=== PATIENT | female | born 1990 | race American Indian/Alaskan Native ===

== ENCOUNTER 2016-09-12 19:16 | Outpatient (CLI) | payer MEDICAID ==
[2016-09-12 20:10] VITALS: BP 118/66
[2016-09-12] MEDS ORDERED: ZOFRAN IV ONE (20:17)
[2016-09-12 20:32] LABS: Bilirubin,Urine NEG (Negative); Blood,Urine NEG (Negative); Ketones,Urine 20 mg/dL (Negative); Leukocyte Esterase,Urine SM (Negative); Mucus,Urine FEW /HPF; Nitrite,Urine NEG (Negative); Protein,Urine <15 mg/dL mg/dL (Negative); Urobilinogen,Urine < 2.0 mg/dL (<2.0)
[2016-09-12] MEDS ORDERED: LACTATED RINGERS 1,000 ML IV ONE (21:00)
[2016-09-12] MEDS ORDERED: BRETHINE SUB-Q PRN ×2 (21:05→21:25)
[2016-09-12] MEDS ORDERED: BRETHINE ONE (21:05)
[2016-09-12] MEDS ORDERED: LACTATED RINGERS 1,000 ML IV SCH (22:00)
== END 2016-09-12 22:30 | disposition home or self-care (01) ==
LOC: EDSTATUS 19:52 → TRG 19:53
PROVIDERS: ATTEND Obstetrics & Gynecology
DX: O21.8 Other vomiting complicating pregnancy (principal); Z3A.28 28 weeks gestation of pregnancy
CPT/HCPCS: 36415; 81001; 82731; J2405; J3105; J7120; 96360; 96372

== ENCOUNTER 2016-10-15 15:26 | Outpatient (CLI) | payer MEDICAID ==
[2016-10-15] MEDS ORDERED: LACTATED RINGERS 1,000 ML IV ONE (15:59)
[2016-10-15 16:19] LABS: Bacteria,Urine 1+ /HPF (Negative); Bilirubin,Urine NEG (Negative); Blood,Urine NEG (Negative); Ketones,Urine NEG (Negative); Leukocyte Esterase,Urine TR (Negative); Nitrite,Urine NEG (Negative); Protein,Urine <15 mg/dL mg/dL (Negative); Urobilinogen,Urine < 2.0 mg/dL (<2.0)
[2016-10-15] MEDS ORDERED: BRETHINE SUB-Q PRN (18:01)
[2016-10-15] MEDS ORDERED: BRETHINE ONE (18:03)
[2016-10-15] MEDS ORDERED: BRETHINE SUB-Q SCH (18:28)
[2016-10-15] MEDS: BRETHINE SUB-Q PRN ×2 (19:00→19:24)
[2016-10-15 19:05] VITALS: BP 123/74
[2016-10-15] MEDS ORDERED: VISTARIL PO ONE (20:03)
== END 2016-10-15 20:01 | disposition home or self-care (01) ==
LOC: TRG 15:26
PROVIDERS: ATTEND Obstetrics & Gynecology
DX: O26.893 Other specified pregnancy related conditions, third trimester (principal); O47.03 False labor before 37 completed weeks of gestation, third trimester; R10.9 Unspecified abdominal pain; R10.2 Pelvic and perineal pain; Z3A.33 33 weeks gestation of pregnancy
CPT/HCPCS: 59025; 81001; 96360; 96372; 96374; J3105; J7120; Q0177

== ENCOUNTER 2016-11-14 17:51 | Outpatient (CLI) | payer MEDICAID ==
[2016-11-14] MEDS ORDERED: LACTATED RINGERS 1,000 ML ONE (18:43)
[2016-11-14] MEDS ORDERED: LACTATED RINGERS 1,000 ML IV ONE ×2 (18:45→20:00)
[2016-11-14] MEDS ORDERED: ZOFRAN IV ONE (19:00)
[2016-11-14 20:04] VITALS: BP 120/75
== END 2016-11-14 21:00 | disposition home or self-care (01) ==
LOC: TRG 17:51
PROVIDERS: ATTEND Obstetrics & Gynecology
DX: O47.1 False labor at or after 37 completed weeks of gestation (principal); Z3A.37 37 weeks gestation of pregnancy
CPT/HCPCS: 59025; 96360; J7120

== ENCOUNTER 2016-11-29 09:59 | Outpatient (CLI) | payer MEDICAID ==
[2016-11-29 10:30] VITALS: BP 125/72
--- NOTE | 2016-11-29 13:41 | Ultrasound Report ---
BIOPHYSICAL PROFILE: INDICATION: well being. COMPARISON: None similar. TECHNIQUE: Transabdominal ultrasound with Doppler interrogation. 2 - breathing movements 2 - movements 2 - posture and tone 2 - Qualitative amniotic fluid volume 8 - TOTAL SCORE OF POSSIBLE 8 Heart Rate (bpm) 126
== END 2016-11-29 14:07 | disposition home or self-care (01) ==
LOC: TRG 09:59
PROVIDERS: ATTEND Obstetrics & Gynecology
DX: O48.0 Post-term pregnancy (principal); Z3A.40 40 weeks gestation of pregnancy
CPT/HCPCS: 59025; 76819

== ENCOUNTER 2016-11-30 18:00 | Outpatient (CLI) | payer MEDICAID ==
[2016-11-30 18:25] VITALS: BP 126/82
== END 2016-11-30 19:50 | disposition home or self-care (01) ==
LOC: TRG 18:00
PROVIDERS: ATTEND Obstetrics & Gynecology Gynecology
DX: O48.0 Post-term pregnancy (principal); Z3A.40 40 weeks gestation of pregnancy
CPT/HCPCS: 59025

== ENCOUNTER 2016-12-05 08:36 | Inpatient (IN) | payer MEDICAID ==
[2016-12-05] MEDS ORDERED: LACTATED RINGERS 1,000 ML ONE (09:34)
[2016-12-05] MEDS ORDERED: STADOL IV PRN (10:30)
[2016-12-05] MEDS ORDERED: PITOCin/NS 30 UNIT/500ML 30 UNITS/500 ML BAG IV SCH (10:30)
[2016-12-05] MEDS ORDERED: ePHEDrine SULFATE IV PRN (10:30)
[2016-12-05] MEDS ORDERED: SUBLIMAZE IV PRN (10:30)
--- NOTE | 2016-12-05 10:36 | History and Physical Report ---
History of Present Illness Date of examination: 12/05/16 Date of admission: 12/05/16 08:36 Chief complaint: scheduled induction at 40+6 wks History of present illness: 26 y/o at 40+6 wks presents for induction of labor, she is a [facility] patient. course has been unremarkable per patient Past History Past Medical History: no pertinent history Past Surgical History: no surgical history [employer] History: denies: chlamydia, gonorrhea, hepatitis B, hepatitis C, herpes, HIV , syphilis Social history: single, full code. denies: smoking, alcohol abuse, prescription drug abuse, IV drug use - Obstetrical History Expected Date of Delivery: 11/29/16 Actual Gestation: 40 Week(s) 6 Day(s) : 6 Para: 1 Medications and Allergies Allergies Allergy/AdvReac Type Severity Reaction Status Date / Time amoxicillin Allergy Severe Angioedema Verified 12/05/16 09:06 Home Medications Medication Instructions Recorded Confirmed Last Taken Type Ondansetron [Zofran] 4 mg PO Q6HR PRN #12 tablet 06/01/13 11/05/16 11/04/16 16: 00 Rx 1 Ferrous Sulfate [Ferrous Sulfate] 1 tab PO TID 10/15/16 11/05/16 10/13/16 14:00 History 1 Vit W-Ca,Fe,FA(<1 mg) 1 each PO DAILY 11/05/16 11/05/16 Unknown History [ Vitamins] Active Meds: Active Medications Butorphanol Tartrate (Stadol) 2 mg IV Q2H PRN PRN Reason: Pain , Severe (7-10) Ephedrine Sulfate (Ephedrine Sulfate) 10 mg IV Q2M PRN PRN Reason: Hypotension Stop: 12/06/16 13:00 Fentanyl (Sublimaze) 100 mcg IV Q2H PRN PRN Reason: Labor Pain Lactated Ringer's (Lactated Ringers) 1,000 mls @ 125 mls/hr IV DIRECT LUZ Oxytocin/Sodium Chloride (Pitocin/Ns 20 Unit/1000ml Drip) 20 units in 1,000 mls @ 125 mls/hr IV DIRECT LUZ Oxytocin/Sodium Chloride (Pitocin/Ns 30 Unit/500ml) 30 units in 500 mls @ 1 mls /hr IV TITR LUZ; 1 MILLIUNITS/MIN PRN Reason: Protocol Lidocaine (Xylocaine 2%) 20 ml INFILTRATI ONCE ONE Stop: 12/05/16 11:01 Mineral Oil (Mineral Oil) 30 ml PO QHS PRN PRN Reason: Constipation Terbutaline Sulfate (Brethine) 0.25 mg SUB-Q ONCE PRN PRN Reason: Hyperstimulation/Hypertonicity Stop: 12/05/16 11:01 Terbutaline Sulfate (Brethine) 0.25 mg IVP ONCE PRN PRN Reason: Hyperstimulation/Hypertonicity Stop: 12/05/16 11:01 Review of Systems Constitutional: no fever, no chills, no weakness Cardiovascular: no chest pain, no orthopnea, no palpitations, no syncope, no lightheadedness, no shortness of breath, no dyspnea on exertion, no paroxysmal nocturnal dyspnea - Vital Signs Vital signs: Vital Signs Pulse Pulse Ox 94 H 99 12/05/16 09:00 12/05/16 09:00 Temp Pulse Resp BP Pulse Ox 97.1 F L 87 20 122/77 99 12/05/16 09:08 12/05/16 09:01 12/05/16 09:08 12/05/16 09:01 12/05/16 09:00 - Physical Exam Cardiovascular: Regular rate, Normal S1, Normal S2 Lungs: Positive: Clear to auscultation, Normal air movement Abdomen: Positive: normal appearance, soft. Negative: distention, tenderness, guarding, rigidity Genitourinary (Female): Positive: normal external genitalia Uterus: Positive: enlarged (?EFW ~ 4200) Adnexa: both: normal Extremities: Positive: normal - Obstetrical FHR: category 1 Cervical Dilatation: 2.5 (Per RN) Results All other labs normal. Assessment and Plan A: 26 y/o at 40+6 wks for labour induction -Cat 1 tracing P: -Unsure of EFW, we'll obtain a growth scan now -Most likely Pitocin after EFW done -Routine labs -Epidural when necessary -Anticipate normal vaginal delivery - Patient Problems (1) 40 weeks gestation of Current Visit: Yes Status: Acute
[2016-12-05 10:40] LABS: Hematocrit 20.5 % (30.3-42.9); Hemoglobin 6.2 gm/dl (10.1-14.3); Mean Corpuscular HGB Conc 30 % (30-34); Platelet Count 159 K/mm3 (140-440); Red Blood Count 3.46 M/mm3 (3.65-5.03); Red Cell Distribution Width 19.7 % (13.2-15.2); White Blood Count 5.5 K/mm3 (4.5-11.0)
[2016-12-05] MEDS ORDERED: ZOFRAN IV PRN (10:40)
[2016-12-05 10:48] LABS: Mean Corpuscular Hemoglobin 18 pg (28-32); Mean Corpuscular Volume 59 fl (79-97)
[2016-12-05] MEDS ORDERED: LACTATED RINGERS 1,000 ML IV SCH ×2 (11:00)
[2016-12-05] MEDS ORDERED: PITOCin/NS 20 UNIT/1000ML DRIP 20 UNITS/1,000 ML BAG IV SCH (11:00)
[2016-12-05] MEDS ORDERED: BRETHINE SUB-Q PRN (11:00)
[2016-12-05] MEDS ORDERED: MINERAL OIL PO PRN (11:00)
[2016-12-05] MEDS ORDERED: XYLOCAINE 2% INFILTRATI ONE (11:00)
[2016-12-05] MEDS ORDERED: BRETHINE IVP PRN (11:00)
[2016-12-05] MEDS ORDERED: NACL 0.9% 500 ML 500 ML IV NR (13:00)
--- NOTE | 2016-12-05 13:10 | Event Note ---
Date: 12/05/16 Ultrasound complete and reviewed patient's labs from admission. EFW is 4053 g, she is cephalic with an FABI of 24. Her hemoglobin and hematocrit is also low at 6. 2/21. Had a long discussion with the patient and her partner and mother. Explained that she does have a large fetus but that does not preclude vaginal delivery, discussed shoulder dystocia and ACOG recommendations for primary . She is aware that she could request primary at any time but declines. We then discussed her hemoglobin of 6.2, I recommended transfusion and she has accepted. Plan is to obtain anemia studies then transfuse with 2 units packed red blood cells now, continue with Pit induction.
[2016-12-05 13:49] LABS: Iron 18 ug/dL (37-170); Total Iron Binding Capacity 412 mcg/dL (250-450)
--- NOTE | 2016-12-05 14:37 | Ultrasound Report ---
COMPLETE OB ULTRASOUND: Gestation: Fatima Position: Cephalic Amniotic Fluid: FABI = 23.8 cm Placenta: Anterior Placental Grade: 2 Heart Rate: 140 BPM ANATOMY VISUALIZED: Kidneys 4 Chamber Heart Heart 3 Vessel Cord SPINE VISUALIZED: Limited spine due to position The following are not demonstrated due to maternal body habitus or lie: BPD: 9.8 cm = 39 w 6 d HC: 34.6 cm = 40 w 0 d AC: 36.7 cm = 40 w 4 d FL: 7.7 cm = 39 w 4 d HC/AC Ratio: 0.94 Cephalic Index: 81.1 Estimated Weight: 4053 grams Clinical age = 40 w 6 d EDC: 11/29/16 US Gest. Age = 40 w 0 d EDC: 12/05/16
--- NOTE | 2016-12-05 17:24 | Progress Note ---
Assessment and Plan - Patient Problems (1) 40 weeks gestation of Current Visit: Yes Status: Acute Subjective - Subjective Date of service: 12/05/16 Patient reports: new complaints, movement normal, contractions, no loss of fluid, no vaginal bleeding Objective - Vital Signs Vital Signs: Vital Signs - 12hr 12/05/16 12/05/16 12/05/16 09:00 09:01 09:08 Temperature 97.1 F L Pulse Rate 94 H 87 Respiratory 20 Rate Blood Pressure 122/77 O2 Sat by Pulse 99 Oximetry 12/05/16 12/05/16 12/05/16 11:22 11:27 11:32 Temperature Pulse Rate 86 82 78 Respiratory Rate Blood Pressure O2 Sat by Pulse 94 100 99 Oximetry 12/05/16 12/05/16 12/05/16 11:37 11:42 11:47 Temperature Pulse Rate 76 78 72 Respiratory Rate Blood Pressure 130/86 O2 Sat by Pulse 100 100 100 Oximetry 12/05/16 12/05/16 12/05/16 11:52 11:57 12:02 Temperature Pulse Rate 77 89 75 Respiratory Rate Blood Pressure O2 Sat by Pulse 100 100 100 Oximetry 12/05/16 12/05/16 12/05/16 12:07 12:12 12:17 Temperature Pulse Rate 76 73 72 Respiratory Rate Blood Pressure O2 Sat by Pulse 100 100 100 Oximetry 12/05/16 12/05/16 12/05/16 12:22 12:27 12:32 Temperature Pulse Rate 69 72 72 Respiratory Rate Blood Pressure O2 Sat by Pulse 100 100 100 Oximetry 12/05/16 12/05/16 12/05/16 12:37 12:42 12:47 Temperature Pulse Rate 74 71 79 Respiratory Rate Blood Pressure O2 Sat by Pulse 100 100 100 Oximetry 12/05/16 12/05/16 12/05/16 12:52 12:57 13:02 Temperature Pulse Rate 81 81 83 Respiratory Rate Blood Pressure O2 Sat by Pulse 100 100 100 Oximetry 12/05/16 12/05/16 12/05/16 13:07 13:12 13:17 Temperature Pulse Rate 75 78 78 Respiratory Rate Blood Pressure O2 Sat by Pulse 100 100 100 Oximetry 12/05/16 12/05/16 12/05/16 13:22 13:27 13:32 Temperature Pulse Rate 74 78 89 Respiratory Rate Blood Pressure O2 Sat by Pulse 100 100 100 Oximetry 12/05/16 12/05/16 12/05/16 13:37 13:42 13:47 Temperature Pulse Rate 76 87 75 Respiratory Rate Blood Pressure O2 Sat by Pulse 100 100 100 Oximetry 12/05/16 12/05/16 12/05/16 13:52 13:57 14:12 Temperature 98.9 F Pulse Rate 78 75 80 Respiratory 18 Rate Blood Pressure 129/92 O2 Sat by Pulse 100 99 Oximetry 12/05/16 12/05/16 12/05/16 14:20 14:25 14:28 Temperature Pulse Rate 79 80 77 Respiratory Rate Blood Pressure 130/84 129/92 123/88 O2 Sat by Pulse 100 100 Oximetry 12/05/16 12/05/16 12/05/16 14:29 14:30 14:31 Temperature 98.9 F Pulse Rate 78 81 78 Respiratory 18 Rate Blood Pressure 123/84 127/84 O2 Sat by Pulse 100 Oximetry 12/05/16 12/05/16 12/05/16 14:34 14:35 14:36 Temperature 98.9 F Pulse Rate 87 86 81 Respiratory 18 Rate Blood Pressure 127/84 123/85 O2 Sat by Pulse 100 100 Oximetry 12/05/16 12/05/16 12/05/16 14:40 14:41 14:44 Temperature 98.8 F Pulse Rate 83 79 81 Respiratory 18 Rate Blood Pressure 131/86 131/86 O2 Sat by Pulse 100 100 Oximetry 12/05/16 12/05/16 12/05/16 14:45 14:50 14:55 Temperature Pulse Rate 89 81 93 H Respiratory Rate Blood Pressure O2 Sat by Pulse 100 100 100 Oximetry 12/05/16 12/05/16 12/05/16 14:59 15:00 15:01 Temperature 98.1 F Pulse Rate 82 78 84 Respiratory 18 Rate Blood Pressure 130/84 134/87 O2 Sat by Pulse 100 100 Oximetry 12/05/16 12/05/16 12/05/16 15:05 15:10 15:13 Temperature Pulse Rate 87 82 81 Respiratory Rate Blood Pressure 139/88 O2 Sat by Pulse 100 100 Oximetry 12/05/16 12/05/16 12/05/16 15:15 15:20 15:25 Temperature Pulse Rate 84 85 78 Respiratory Rate Blood Pressure O2 Sat by Pulse 100 100 100 Oximetry 12/05/16 12/05/16 12/05/16 15:26 15:30 15:35 Temperature 98.1 F Pulse Rate 90 89 85 Respiratory 18 Rate Blood Pressure 139/88 O2 Sat by Pulse 100 100 100 Oximetry 12/05/16 12/05/16 12/05/16 15:40 15:51 15:56 Temperature Pulse Rate 92 H 78 85 Respiratory Rate Blood Pressure 134/87 O2 Sat by Pulse 99 100 100 Oximetry 12/05/16 12/05/16 12/05/16 16:01 16:06 16:11 Temperature Pulse Rate 84 87 89 Respiratory Rate Blood Pressure O2 Sat by Pulse 100 100 100 Oximetry 12/05/16 12/05/16 12/05/16 16:16 16:20 16:21 Temperature Pulse Rate 89 80 83 Respiratory Rate Blood Pressure 136/87 O2 Sat by Pulse 100 100 Oximetry 12/05/16 12/05/16 12/05/16 16:26 16:28 16:30 Temperature 98.3 F Pulse Rate 87 89 83 Respiratory 16 Rate Blood Pressure 124/73 124/73 O2 Sat by Pulse 100 100 Oximetry 12/05/16 12/05/16 12/05/16 16:31 16:35 16:36 Temperature 98.3 F Pulse Rate 86 86 87 Respiratory 16 Rate Blood Pressure 141/87 O2 Sat by Pulse 100 100 100 Oximetry 12/05/16 12/05/16 12/05/16 16:37 16:38 16:40 Temperature 98.3 F 98.3 F Pulse Rate 85 88 Respiratory 16 16 Rate Blood Pressure 135/83 135/83 O2 Sat by Pulse 100 Oximetry 12/05/16 12/05/16 12/05/16 16:41 16:45 16:46 Temperature 98.3 F Pulse Rate 82 87 78 Respiratory 18 Rate Blood Pressure 126/80 O2 Sat by Pulse 100 100 100 Oximetry 12/05/16 12/05/16 12/05/16 16:50 16:51 16:56 Temperature Pulse Rate 93 H 90 82 Respiratory Rate Blood Pressure 126/83 O2 Sat by Pulse 99 100 Oximetry 12/05/16 12/05/16 12/05/16 16:58 17:01 17:06 Temperature Pulse Rate 75 79 81 Respiratory Rate Blood Pressure 132/80 O2 Sat by Pulse 100 99 Oximetry 12/05/16 12/05/16 17:11 17:16 Temperature Pulse Rate 85 77 Respiratory Rate Blood Pressure O2 Sat by Pulse 99 100 Oximetry - Exam FHR: category 1 Cervical Dilatation: 4.5 - Labs Labs: Abnormal Labs 12/05/16 12/05/16 12/05/16 09:00 09:00 09:00 RBC 3.46 L Hgb 6.2 L Hct 20.5 L MCV 59 L MCH 18 L RDW 19.7 H Iron 18 L Ferritin Crossmatch See Detail 12/05/16 13:39 RBC Hgb Hct MCV MCH RDW Iron Ferritin 7.7 L Crossmatch Laboratory Results - last 24 hr 12/05/16 12/05/16 12/05/16 09:00 09:00 09:00 WBC 5.5 RBC 3.46 L Hgb 6.2 L Hct 20.5 L MCV 59 L MCH 18 L MCHC 30 RDW 19.7 H Plt Count 159 Iron 18 L TIBC 412 Ferritin Vitamin B12 Blood Type A POSITIVE Antibody Screen Negative Crossmatch See Detail 12/05/16 12/05/16 13:39 13:39 WBC RBC Hgb Hct MCV MCH MCHC RDW Plt Count Iron TIBC Ferritin 7.7 L Vitamin B12 237.2 Blood Type Antibody Screen Crossmatch
--- NOTE | 2016-12-05 19:19 | Progress Note ---
Assessment and Plan A: 26 y/o at 40+6 wks for labour induction -Cat 1 tracing P: AROMed IUPC placed Continue present care - Patient Problems (1) 40 weeks gestation of Current Visit: Yes Status: Acute Subjective - Subjective Date of service: 12/05/16 Interval history: Patient with tachysystole, it turned off. Still 5 cm, AROM with clear fluid and IUPC placed Patient reports: new complaints, loss of fluid (AROMed), movement normal, contractions, no vaginal bleeding Objective - Vital Signs Vital Signs: Vital Signs - 12hr 12/05/16 12/05/16 12/05/16 09:00 09:01 09:08 Temperature 97.1 F L Pulse Rate 94 H 87 Respiratory 20 Rate Blood Pressure 122/77 O2 Sat by Pulse 99 Oximetry 12/05/16 12/05/16 12/05/16 11:22 11:27 11:32 Temperature Pulse Rate 86 82 78 Respiratory Rate Blood Pressure O2 Sat by Pulse 94 100 99 Oximetry 12/05/16 12/05/16 12/05/16 11:37 11:42 11:47 Temperature Pulse Rate 76 78 72 Respiratory Rate Blood Pressure 130/86 O2 Sat by Pulse 100 100 100 Oximetry 12/05/16 12/05/16 12/05/16 11:52 11:57 12:02 Temperature Pulse Rate 77 89 75 Respiratory Rate Blood Pressure O2 Sat by Pulse 100 100 100 Oximetry 12/05/16 12/05/16 12/05/16 12:07 12:12 12:17 Temperature Pulse Rate 76 73 72 Respiratory Rate Blood Pressure O2 Sat by Pulse 100 100 100 Oximetry 12/05/16 12/05/16 12/05/16 12:22 12:27 12:32 Temperature Pulse Rate 69 72 72 Respiratory Rate Blood Pressure O2 Sat by Pulse 100 100 100 Oximetry 12/05/16 12/05/16 12/05/16 12:37 12:42 12:47 Temperature Pulse Rate 74 71 79 Respiratory Rate Blood Pressure O2 Sat by Pulse 100 100 100 Oximetry 12/05/16 12/05/16 12/05/16 12:52 12:57 13:02 Temperature Pulse Rate 81 81 83 Respiratory Rate Blood Pressure O2 Sat by Pulse 100 100 100 Oximetry 12/05/16 12/05/16 12/05/16 13:07 13:12 13:17 Temperature Pulse Rate 75 78 78 Respiratory Rate Blood Pressure O2 Sat by Pulse 100 100 100 Oximetry 12/05/16 12/05/16 12/05/16 13:22 13:27 13:32 Temperature Pulse Rate 74 78 89 Respiratory Rate Blood Pressure O2 Sat by Pulse 100 100 100 Oximetry 12/05/16 12/05/16 12/05/16 13:37 13:42 13:47 Temperature Pulse Rate 76 87 75 Respiratory Rate Blood Pressure O2 Sat by Pulse 100 100 100 Oximetry 12/05/16 12/05/16 12/05/16 13:52 13:57 14:12 Temperature 98.9 F Pulse Rate 78 75 80 Respiratory 18 Rate Blood Pressure 129/92 O2 Sat by Pulse 100 99 Oximetry 12/05/16 12/05/16 12/05/16 14:20 14:25 14:28 Temperature Pulse Rate 79 80 77 Respiratory Rate Blood Pressure 130/84 129/92 123/88 O2 Sat by Pulse 100 100 Oximetry 12/05/16 12/05/16 12/05/16 14:29 14:30 14:31 Temperature 98.9 F Pulse Rate 78 81 78 Respiratory 18 Rate Blood Pressure 123/84 127/84 O2 Sat by Pulse 100 Oximetry 12/05/16 12/05/16 12/05/16 14:34 14:35 14:36 Temperature 98.9 F Pulse Rate 87 86 81 Respiratory 18 Rate Blood Pressure 127/84 123/85 O2 Sat by Pulse 100 100 Oximetry 12/05/16 12/05/16 12/05/16 14:40 14:41 14:44 Temperature 98.8 F Pulse Rate 83 79 81 Respiratory 18 Rate Blood Pressure 131/86 131/86 O2 Sat by Pulse 100 100 Oximetry 12/05/16 12/05/16 12/05/16 14:45 14:50 14:55 Temperature Pulse Rate 89 81 93 H Respiratory Rate Blood Pressure O2 Sat by Pulse 100 100 100 Oximetry 12/05/16 12/05/16 12/05/16 14:59 15:00 15:01 Temperature 98.1 F Pulse Rate 82 78 84 Respiratory 18 Rate Blood Pressure 130/84 134/87 O2 Sat by Pulse 100 100 Oximetry 12/05/16 12/05/16 12/05/16 15:05 15:10 15:13 Temperature Pulse Rate 87 82 81 Respiratory Rate Blood Pressure 139/88 O2 Sat by Pulse 100 100 Oximetry 12/05/16 12/05/16 12/05/16 15:15 15:20 15:25 Temperature Pulse Rate 84 85 78 Respiratory Rate Blood Pressure O2 Sat by Pulse 100 100 100 Oximetry 12/05/16 12/05/16 12/05/16 15:26 15:30 15:35 Temperature 98.1 F Pulse Rate 90 89 85 Respiratory 18 Rate Blood Pressure 139/88 O2 Sat by Pulse 100 100 100 Oximetry 12/05/16 12/05/16 12/05/16 15:40 15:51 15:56 Temperature Pulse Rate 92 H 78 85 Respiratory Rate Blood Pressure 134/87 O2 Sat by Pulse 99 100 100 Oximetry 12/05/16 12/05/16 12/05/16 16:01 16:06 16:11 Temperature Pulse Rate 84 87 89 Respiratory Rate Blood Pressure O2 Sat by Pulse 100 100 100 Oximetry 12/05/16 12/05/16 12/05/16 16:16 16:20 16:21 Temperature Pulse Rate 89 80 83 Respiratory Rate Blood Pressure 136/87 O2 Sat by Pulse 100 100 Oximetry 12/05/16 12/05/16 12/05/16 16:26 16:28 16:30 Temperature 98.3 F Pulse Rate 87 89 83 Respiratory 16 Rate Blood Pressure 124/73 124/73 O2 Sat by Pulse 100 100 Oximetry 12/05/16 12/05/16 12/05/16 16:31 16:35 16:36 Temperature 98.3 F Pulse Rate 86 86 87 Respiratory 16 Rate Blood Pressure 141/87 O2 Sat by Pulse 100 100 100 Oximetry 12/05/16 12/05/16 12/05/16 16:37 16:38 16:40 Temperature 98.3 F 98.3 F Pulse Rate 85 88 Respiratory 16 16 Rate Blood Pressure 135/83 135/83 O2 Sat by Pulse 100 Oximetry 12/05/16 12/05/16 12/05/16 16:41 16:45 16:46 Temperature 98.3 F Pulse Rate 82 87 78 Respiratory 18 Rate Blood Pressure 126/80 O2 Sat by Pulse 100 100 100 Oximetry 12/05/16 12/05/16 12/05/16 16:50 16:51 16:56 Temperature Pulse Rate 93 H 90 82 Respiratory Rate Blood Pressure 126/83 O2 Sat by Pulse 99 100 Oximetry 12/05/16 12/05/1617 16:58 17:00 17:01 Temperature 98.4 F Pulse Rate 75 83 79 Respiratory 20 Rate Blood Pressure 132/80 132/80 O2 Sat by Pulse 100 100 Oximetry 12/05/16 12/05/16 12/05/16 17:06 17:11 17:16 Temperature Pulse Rate 81 85 77 Respiratory Rate Blood Pressure O2 Sat by Pulse 99 99 100 Oximetry 12/05/16 12/05/16 12/05/16 17:21 17:26 17:30 Temperature Pulse Rate 86 84 75 Respiratory Rate Blood Pressure 135/87 O2 Sat by Pulse 100 99 Oximetry 12/05/16 12/05/16 12/05/16 17:31 17:36 17:41 Temperature Pulse Rate 77 77 89 Respiratory Rate Blood Pressure O2 Sat by Pulse 100 100 100 Oximetry 12/05/16 12/05/16 12/05/16 17:46 17:51 17:56 Temperature Pulse Rate 79 78 78 Respiratory Rate Blood Pressure O2 Sat by Pulse 100 100 100 Oximetry 12/05/16 12/05/16 12/05/16 17:58 18:01 18:06 Temperature Pulse Rate 77 71 82 Respiratory Rate Blood Pressure 138/89 O2 Sat by Pulse 100 100 Oximetry 12/05/16 12/05/16 12/05/16 18:11 18:16 18:21 Temperature Pulse Rate 73 72 74 Respiratory Rate Blood Pressure O2 Sat by Pulse 100 100 100 Oximetry 12/05/16 12/05/16 12/05/16 18:26 18:30 18:31 Temperature Pulse Rate 72 73 72 Respiratory Rate Blood Pressure 130/86 O2 Sat by Pulse 100 99 Oximetry 12/05/16 12/05/16 12/05/16 18:36 18:41 18:46 Temperature Pulse Rate 71 71 72 Respiratory Rate Blood Pressure O2 Sat by Pulse 100 100 100 Oximetry 12/05/16 12/05/16 12/05/16 18:51 18:56 18:58 Temperature Pulse Rate 75 75 80 Respiratory Rate Blood Pressure 124/87 O2 Sat by Pulse 100 100 Oximetry 12/05/16 12/05/16 12/05/16 19:01 19:06 19:11 Temperature Pulse Rate 72 76 76 Respiratory Rate Blood Pressure O2 Sat by Pulse 100 100 100 Oximetry - Exam Uterus: Absent: tenderness FHR: category 1 Cervical Dilatation: 5 - Labs Labs: Abnormal Labs 04/05/17 04/05/17 04/05/17 09:00 09:00 09:00 RBC 3.46 L Hgb 6.2 L Hct 20.5 L MCV 59 L MCH 18 L RDW 19.7 H Iron 18 L Ferritin Crossmatch See Detail 12/05/16 13:39 RBC Hgb Hct MCV MCH RDW Iron Ferritin 7.7 L Crossmatch Laboratory Results - last 24 hr 12/05/16 12/05/16 12/05/16 09:00 09:00 09:00 WBC 5.5 RBC 3.46 L Hgb 6.2 L Hct 20.5 L MCV 59 L MCH 18 L MCHC 30 RDW 19.7 H Plt Count 159 Iron 18 L TIBC 412 Ferritin Vitamin B12 Blood Type A POSITIVE Antibody Screen Negative Crossmatch See Detail 12/05/16 12/05/16 13:39 13:39 WBC RBC Hgb Hct MCV MCH MCHC RDW Plt Count Iron TIBC Ferritin 7.7 L Vitamin B12 237.2 Blood Type Antibody Screen Crossmatch
[2016-12-05] MEDS ORDERED: REGLAN IV ONE (23:00)
[2016-12-05] MEDS ORDERED: BICITRA PO ONE ×2 (23:00→23:25)
[2016-12-05] MEDS ORDERED: ANCEF/STERILE WATER 2 GM/20 ML IV NR (23:00)
[2016-12-05] MEDS ORDERED: PEPCID IV ONE ×3 (23:00→23:29)
[2016-12-05] MEDS ORDERED: NARCAN 2 MG/2 ML IV PRN (23:01)
--- NOTE | 2016-12-05 23:02 | Anesthesia Consultation ---
Anesthesia Consult and Med Hx Date of service: 12/05/16 - Airway Anesthetic Teeth Evaluation: Good ROM Head & Neck: Adequate Mental/Hyoid Distance: Adequate Mallampati Class: Class II Intubation Access Assessment: Probably Good - Pulmonary Exam CTA: Yes - Cardiac Exam Cardiac Exam: RRR - Pre-Operative Health Status ASA Pre-Surgery Classification: ASA2 Proposed Anesthetic Plan: Epidural - Pulmonary Hx Asthma: No COPD: No Hx Pneumonia: No - Cardiovascular System Hx Hypertension: No - Central Nervous System Hx Seizures: No Hx Psychiatric Problems: Yes (hx of anxiety) - Endocrine Hx Renal Disease: No Hx End Stage Renal Disease: No Hx Hypothyroidism: No Hx Hyperthyroidism: No - Hematic Hx Anemia: Yes Hx Sickle Cell Disease: Yes (+ sickle cell trait) - Other Systems Hx Alcohol Use: No
[2016-12-05] MEDS ORDERED: REGLAN IV NR (23:25)
[2016-12-05] MEDS ORDERED: BICITRA ONE (23:29)
[2016-12-05] MEDS ORDERED: REGLAN ONE (23:29)
[2016-12-05] MEDS ORDERED: ANCEF/STERILE WATER 2 GM/20 ML 2 GM/20 ML SYRINGE IV ONE (23:29)
--- NOTE | 2016-12-05 23:37 | Anesthesia Day of Surgery ---
Anesthesia Day of Surgery - Day of Surgery Patient Examined: Yes Patient H&P Reviewed: Yes Patient is NPO: Yes
[2016-12-05] MEDS ORDERED: fentaNYL-BUPIV 2 MCG/ML-0.125% 200 MCG/100 ML BAG EPIDURAL SCH (23:45)
[2016-12-05] MEDS ORDERED: XYLOCAINE MPF 2% ONE (23:56)
[2016-12-05] MEDS ORDERED: MORPHINE ONE ×2 (23:56)
[2016-12-06] MEDS ORDERED: NACL 0.9% IR ONE
[2016-12-06] MEDS ORDERED: WATER FOR IRRIG STERILE IR ONE
[2016-12-06] MEDS ORDERED: SUBLIMAZE ONE (00:03)
[2016-12-06] MEDS ORDERED: VERSED ONE (00:07)
[2016-12-06] MEDS ORDERED: ZOFRAN ONE (00:09)
[2016-12-06] MEDS ORDERED: TORADOL ONE (00:48)
[2016-12-06] MEDS ORDERED: NARCAN 0.4 MG/1 ML IV PRN (00:56)
[2016-12-06] MEDS ORDERED: MILK OF MAGNESIA PO PRN (00:56)
[2016-12-06] MEDS ORDERED: SENOKOT PO PRN (00:56)
[2016-12-06] MEDS ORDERED: TORADOL IV PRN (00:56)
[2016-12-06] MEDS ORDERED: MYLICON PO PRN (00:56)
[2016-12-06] MEDS ORDERED: ANUCORT-HC PR PRN (00:56)
[2016-12-06] MEDS ORDERED: TUCKS PAD TP PRN (00:56)
[2016-12-06] MEDS ORDERED: TYLENOL PO PRN (00:56)
[2016-12-06] MEDS ORDERED: LANSINOH TP PRN (00:56)
[2016-12-06] MEDS ORDERED: SODIUM CHLORIDE FLUSH SYRINGE 10 ML IV PRN (01:00)
[2016-12-06] MEDS ORDERED: PITOCin/NS 20 UNIT/1000ML DRIP 20 UNITS/1,000 ML BAG IV SCH (01:00)
--- NOTE | 2016-12-06 01:02 | Operative Report ---
Operative Report Operative Report: DATE: 12/06/2016 PREOPERATIVE DIAGNOSIS:26-year-old 001 at 40+6 weeks, category 2 tracing, macrosomia, arrest of descent and dilation, anemia POSTOP DIAGNOSIS: As above NAME OF PROCEDURE: Primary low transverse section SURGEON: JEANETTE MONSON MD GARMENT PRESSER: [] ANESTHESIA: Epidural EBL: 800 mL PATHOLOGY SPECIMEN: None URINE OUTPUT: 250 mL FINDINGS: Female infant in cephalic presentation, OP position, time of is 00:09 AM, infant weight was 9 lbs. 1 oz. or 4100 g, Apgars 8 and 9, normal uterus tubes and ovaries bilaterally DESCRIPTION OF PROCEDURE: After informed consent, patient was taken to the operating room where she was prepped and draped in a sterile fashion. Pfannestial incision was performed 2 cm above the pubic symphysis. This was then carried down to the underlying rectus fascia which was scored in the midline. The fascial incision was extended laterally with the use of Schaefer scissors, anterior leaf was then grasped with Willards's elevated dissected sharply and bluntly off the underlying rectus. In a similar fashion the inferior leaf was grasped elevated dissected sharply and bluntly off the underlying rectus. The rectus was in the midline and the peritoneal cavity was entered without difficulty. After good visualization of the bladder the peritoneal layer was extended up and down; bladder blade was placed in the patient's pelvic cavity, bladder flap was created without difficulty. A hysterotomy incision was then performed with clear amniotic fluid noted. Infant in cephalic presentation was delivered without difficulty in the usual manner; cord was clamped cut and was handed over to waiting NICU staff. The placenta was then delivered intact, the uterus was then exteriorized cleared of all clots and debris. Her hysterotomy incision was then closed in a running locked fashion with 0 Vicryl on a CTX; using the same suture were able to imbricate the initial layer. The uterus was then returned to the patient's pelvic cavity; the peritoneal edges were grasped with hemostats and Lisandra's; irrigation was used to clear the gutters of all clots and debris. Tisseel hemostatic agent was applied copiously over the hysterotomy incision. The bladder flap was then closed in a running fashion with 3-0 Vicryl. The peritoneal layer was closed in a running fashion with 0 Vicryl; the rectus was reapproximated with a single [id number] stitch. The fascia was then closed in a running fashion with 0 Vicryl; the subcutaneous layer was reapproximated with a single [id number] stitch. The skin was then closed in a subcuticular manner with 4-0 Monocryl. She tolerated the procedure well lap and instrument counts were correct 2, she did receive 2 grams of Ancef prior to the procedure. She is transferred to PACU in stable condition.
--- NOTE | 2016-12-06 01:13 | Post Anesthesia Evaluation ---
- Post Anesthesia Evaluation Patient Participated: Yes Airway Patent: Yes Stable Respiratory Function: Yes Nausea/Vomiting: No Temp > 96.8F: Yes Pain Manageable: Yes Adequeate Hydration: Yes Anesthesia Complications: No Block Receding Appropriately: Yes Patient on Ventilator: No
[2016-12-06] MEDS ORDERED: DILAUDID IV PRN (01:15)
[2016-12-06] MEDS ORDERED: ZOFRAN IV PRN (03:30)
[2016-12-06] MEDS: D5LR 1,000 ML IV SCH ×2 (03:42→11:36)
[2016-12-06] MEDS: BENADRYL IV PRN ×2 (03:55→13:59)
[2016-12-06 13:53] LABS: Hematocrit 23.9 % (30.3-42.9); Hemoglobin 7.5 gm/dl (10.1-14.3)
[2016-12-06] MEDS: BENADRYL PO PRN ×2 (17:38→23:43)
[2016-12-06] MEDS: MOTRIN PO PRN (17:50)
[2016-12-06] MEDS: PERCOCET 5/325 PO PRN (17:50)
[2016-12-07] MEDS: MOTRIN PO PRN ×3 (03:51→18:28)
--- NOTE | 2016-12-07 08:53 | Progress Note ---
Assessment and Plan POD # 1 s/p Primary LTCS -Doing well P: -Continue routine post op care -Anticipate discharge in 24-48 hours - Patient Problems (1) S/P primary low transverse Current Visit: Yes Status: Acute (2) Anemia affecting in third trimester Current Visit: Yes Status: Acute (3) 40 weeks gestation of Current Visit: Yes Status: Acute Subjective - Subjective Date of service: 12/07/16 Principal diagnosis: POD # 1 Interval history: Patient seen and examined, stable. No chest pain or shortness of breath, no fever or chills, ambulating without difficulty, adequate bowel bladder function. Patient reports: appetite normal, voiding normally, pain well controlled, flatus , ambulating normally, no dizzy ambulation, no nauseated : doing well Objective - Vital Signs Latest vital signs: Vital Signs Temp Pulse Pulse Resp BP BP 12/07/16 00:20 98.1 F 72 18 123/62 12/06/16 20:10 99.3 F 72 18 132/85 12/06/16 16:30 97.6 F 76 20 114/84 12/06/16 12:45 97.8 F 84 20 124/84 Intake and Output 12/06/16 12/07/16 12/07/16 22:59 06:59 14:59 Intake Total 660 120 Balance 660 120 Intake: Oral 480 Intake, Free Water 180 120 Other: Total, Intake Amount 360 # Voids Void 1 1 - Exam Abdomen: Present: normal appearance, soft, tenderness (appropriate azalea- incisional tenderness). Absent: distention, guarding, rigidity Uterus: Present: fundal height below umbilicus. Absent: tenderness Extremities: Present: normal Incision: Present: dry, intact - Labs Labs: Abnormal lab results 12/06/16 Range/Units 13:37 Hgb 7.5 L (10.1-14.3) gm/dl Hct 23.9 L (30.3-42.9) %
[2016-12-07] MEDS: FEOSOL PO SCH (10:28)
[2016-12-07] MEDS: PERCOCET 5/325 PO PRN ×2 (10:28→18:28)
[2016-12-07] MEDS: PRENATAL VITAMIN PO SCH (10:28)
[2016-12-07] MEDS: POLYSPORIN TP SCH ×2 (10:42→22:05)
[2016-12-08] MEDS: PERCOCET 5/325 PO PRN (03:03)
--- NOTE | 2016-12-08 07:24 | Progress Note ---
Assessment and Plan POD # 2 s/p Primary LTCS -Doing well -Desires discharge home today P: -Discharge home -Up in clinic in 2 weeks - Patient Problems (1) S/P primary low transverse Current Visit: Yes Status: Acute (2) Anemia affecting in third trimester Current Visit: Yes Status: Acute (3) 40 weeks gestation of Current Visit: Yes Status: Acute Subjective - Subjective Date of service: 12/08/16 Principal diagnosis: POD # 2 Interval history: Patient seen and examined, stable. No chest pain or shortness of breath, no fever or chills, ambulating without difficulty, adequate bowel bladder function. Patient reports: appetite normal, voiding normally, pain well controlled, flatus , ambulating normally, no dizzy ambulation, no nauseated [place]: doing well Objective - Vital Signs Latest vital signs: Vital Signs Temp Pulse Resp BP 12/08/16 03:03 18 12/08/16 00:25 98.6 F 77 22 130/71 12/07/16 15:43 98.6 F 87 18 130/69 12/07/16 08:08 98.9 F 70 18 135/70 Intake and Output 12/07/16 12/08/16 12/08/16 22:59 06:59 14:59 Intake Total 480 1400 Balance 480 1400 Intake: Oral 480 550 Intake, Free Water 850 Other: Total, Intake Amount 480 250 # Voids Void 1 - Exam Abdomen: Present: normal appearance, soft. Absent: distention, tenderness, guarding, rigidity Uterus: Present: fundal height at umbilicus. Absent: tenderness Extremities: Present: normal
--- NOTE | 2016-12-08 07:26 | Discharge Summary ---
Providers - Providers Date of Admission: 12/05/16 08:36 Date of discharge: 12/08/16 Attending physician: JEANETTE MONSON Primary care physician: JEANETTE MONSON Hospitalization Reason for admission: active labor, IUP at term Delivery: Procedure: primary low transverse Incision: dry, intact Other procedures: none complications: transfusion Discharge diagnosis: IUP at term delivered, other (Anemia) baby: female Hospital course: [place]-Operative course uncomplicated. She was transfused 2 units packed red blood cells due to her anemia Condition at discharge: Good Disposition: DISCHARGED TO HOME OR SELFCARE - Discharge Diagnoses (1) S/P primary low transverse Status: Acute (2) Anemia affecting in third trimester Status: Acute (3) 40 weeks gestation of Status: Acute Plan - Discharge Medications Prescriptions: Ibuprofen [Motrin 600 MG tab] 600 mg PO Q8H PRN #30 tablet PRN Reason: Pain Multivitamin with Iron [Multivitamins with Iron] 1 each PO DAILY #30 tablet oxyCODONE /ACETAMINOPHEN [Percocet 5/325] 1 tab PO Q6HR PRN #30 tablet PRN Reason: Pain - Provider Discharge Summary Activity: no sex for 6 weeks, no heavy lifting 4 weeks, no strenuous exercise Diet: routine Additional instructions: [] Smoking cessation referral if applicable(refer to patient education folder for contact #) [] Refer to [facility] Booklet Call your doctor immediately for: * Fever > 100.5 * Heavy vaginal bleeding ( >1 pad per hour) * Severe persistent headache * Shortness of breath * Reddened, hot, painful area to leg or breast * Drainage or odor from incision. * Keep incision clean and dry at all times and follow doctor's instructions regarding bathing/showering - Follow up plan Follow up: JEANETTE MONSON MD [Primary Care Provider] - 14 Days
[2016-12-08 09:41] VITALS: BP 137/80
[2016-12-08] MEDS: FEOSOL PO SCH (11:23)
[2016-12-08] MEDS: PRENATAL VITAMIN PO SCH (11:23)
== END 2016-12-08 12:00 | disposition home or self-care (01) | DRG 766 ==
LOC: LD 08:36 → OB 12-06 02:37
PROVIDERS: ADMIT Obstetrics & Gynecology Gynecology; ATTEND Obstetrics & Gynecology Gynecology
PROC: 30233N1 Transfusion of Nonautologous Red Blood Cells into Peripheral Vein, Percutaneous Approach (ICD-10-PCS; 2016-12-05)
PROC: 10D00Z1 Extraction of Products of Conception, Low, Open Approach (ICD-10-PCS; principal; 2016-12-06)
DX: O76 Abnormality in fetal heart rate and rhythm complicating labor and delivery (principal); O99.02 Anemia complicating childbirth; O36.63X0 Maternal care for excessive fetal growth, third trimester, not applicable or unspecified; O32.4XX0 Maternal care for high head at term, not applicable or unspecified; O66.0 Obstructed labor due to shoulder dystocia; O99.344 Other mental disorders complicating childbirth; F41.9 Anxiety disorder, unspecified; Z37.0 Single live birth; Z3A.40 40 weeks gestation of pregnancy; Z88.1 Allergy status to other antibiotic agents
CPT/HCPCS: 36415; 76805; 82607; 82728; 82747; 83550; 85014; 85018; 85027; 86850; 86900; 86901; 86920; 99211; C9250; G0463; J0595; J0690; J1200; J1885; J2250; J2270; J2405; J2590; J2765; J3010; J7040; J7120; J7121; P9016

== ENCOUNTER 2018-01-02 06:39 | Inpatient (IN) | payer MEDICAID ==
[2018-01-02] MEDS: LACTATED RINGERS 1,000 ML IV SCH ×2 (07:30→08:00)
[2018-01-02] MEDS ORDERED: LACTATED RINGERS 2,000 ML ONE (07:48)
[2018-01-02] MEDS ORDERED: PITOCin/NS 20 UNIT/1000ML DRIP 20 UNITS/1,000 ML BAG IV SCH ×2 (08:00→20:00)
[2018-01-02] MEDS ORDERED: REGLAN IV NR (08:00)
[2018-01-02] MEDS ORDERED: PEPCID IV NR (08:00)
[2018-01-02] MEDS ORDERED: BICITRA PO NR (08:00)
[2018-01-02 08:01] LABS: Hematocrit 31.1 % (30.3-42.9); Hemoglobin 10.1 gm/dl (10.1-14.3); Mean Corpuscular HGB Conc 32 % (30-34); Platelet Count 236 K/mm3 (140-440); Red Blood Count 4.66 M/mm3 (3.65-5.03)
[2018-01-02 08:13] LABS: Mean Corpuscular Hemoglobin 22 pg (28-32); Mean Corpuscular Volume 67 fl (79-97); Red Cell Distribution Width 28.6 % (13.2-15.2)
--- NOTE | 2018-01-02 08:17 | Anesthesia Day of Surgery ---
Anesthesia Day of Surgery - Day of Surgery Patient Examined: Yes Patient H&P Reviewed: Yes Patient is NPO: Yes
--- NOTE | 2018-01-02 08:17 | Anesthesia Consultation ---
Anesthesia Consult and Med Hx Date of service: 01/02/18 - Airway Anesthetic Teeth Evaluation: Good ROM Head & Neck: Adequate Mental/Hyoid Distance: Adequate Mallampati Class: Class II Intubation Access Assessment: Probably Good - Pre-Operative Health Status ASA Pre-Surgery Classification: ASA2 Proposed Anesthetic Plan: Epidural, Spinal - Pulmonary Hx Asthma: No COPD: No Hx Pneumonia: No - Cardiovascular System Hx Hypertension: No - Central Nervous System Hx Seizures: No Hx Psychiatric Problems: Yes (hx of anxiety) - Endocrine Hx Renal Disease: No Hx End Stage Renal Disease: No Hx Hypothyroidism: No Hx Hyperthyroidism: No - Hematic Hx Anemia: Yes Hx Sickle Cell Disease: Yes (+ sickle cell trait) - Other Systems Hx Alcohol Use: No
[2018-01-02] MEDS ORDERED: DILAUDID IV PRN (08:30)
--- NOTE | 2018-01-02 08:42 | History and Physical Report ---
History of Present Illness Date of examination: 01/02/18 Date of admission: 01/02/18 06:39 Chief complaint: Repeat C Section History of present illness: Pt is a 27yo BF EDC 01/10/18; EGA 39 6/7 weeks presents to L&D complaining of RUC's. She was scheduled for a Repeat C Section with BTL. She received care at [facility] since 14 weeks and course has been unremarkable. records are available and GBS is Negative. Past History Past Medical History: no pertinent history Past Surgical History: section Social history: no significant social history, single - Obstetrical History : 6 Medications and Allergies Allergies Allergy/AdvReac Type Severity Reaction Status Date / Time amoxicillin Allergy Severe Angioedema Verified 12/05/16 09:06 Home Medications Medication Instructions Recorded Confirmed Last Taken Type No Known Home Medications [No 01/02/18 01/02/18 Unknown History Reported Home Medications] Active Meds: Active Medications Citric Acid/Sodium Citrate (Bicitra) 30 ml PO ONCE NR Stop: 01/02/18 15:00 Diphenhydramine HCl (Benadryl) 12.5 mg IV Q2H PRN PRN Reason: Itching Famotidine (Pepcid) 20 mg IV ONCE NR Stop: 01/02/18 15:00 Hydromorphone HCl (Dilaudid) 0.5 mg IV Q5M PRN PRN Reason: Breakthrough Pain Stop: 01/02/18 16:00 Cefazolin Sodium (Ancef/Sterile Water 2 Gm/20 Ml) 2 gm in 20 mls @ 80 mls/hr IV PREOP NR; Protocol Lactated Ringer's (Lactated Ringers) 1,000 mls @ 2,250 mls/hr IV PREOP LUZ Stop: 01/03/18 08:27 Oxytocin/Sodium Chloride (Pitocin/Ns 20 Unit/1000ml Drip) 20 units in 1,000 mls @ 0 mls/hr IV TITR LUZ Ketorolac Tromethamine (Toradol) 30 mg IV Q6H PRN PRN Reason: Pain, Moderate (4-6) Stop: 01/07/18 08:59 Metoclopramide HCl (Reglan) 10 mg IV ONCE NR Stop: 01/02/18 16:00 Naloxone HCl (Narcan 0.4 Mg/1 Ml) 0.2 mg IV Q2MIN PRN PRN Reason: Res Rate </= 8 or 02 SAT < 92% Ondansetron HCl (Zofran) 4 mg IV Q8H PRN PRN Reason: Nausea And Vomiting Promethazine HCl (Phenergan) 25 mg PO Q6H PRN PRN Reason: Nausea And Vomiting Promethazine HCl (Phenergan) 25 mg CA Q6H PRN PRN Reason: Nausea And Vomiting Sodium Chloride (Sodium Chloride Flush Syringe 10 Ml) 10 ml IV PRN NR Review of Systems All systems: negative - Vital Signs Vital signs: Vital Signs Pulse Pulse Ox 98 H 100 01/02/18 07:24 01/02/18 07:24 Temp Pulse Resp BP Pulse Ox 90 99 01/02/18 07:44 01/02/18 07:44 - Physical Exam Breasts: Positive: deferred Cardiovascular: Regular rate Abdomen: Positive: normal appearance, soft Genitourinary (Female): Positive: normal external genitalia Uterus: Positive: enlarged Extremities: Positive: normal - Obstetrical FHR: category 1 Results Result Diagrams: 01/02/18 07:42 Abnormal lab results 01/02/18 Range/Units 07:42 MCV 67 L (79-97) fl MCH 22 L (28-32) pg RDW 28.6 H (13.2-15.2) % All other labs normal. Assessment and Plan - Patient Problems (1) 38 weeks gestation of Onset Date: 01/02/18 Current Visit: Yes Status: Acute Plan to address problem: A: IUP @ 38 6/7 weeks in labor Previous C Section Desires permanent sterilization P: Admit to L&D for Repeat C Section with BTL (2) Previous section Onset Date: 01/02/18 Current Visit: Yes Status: Acute
[2018-01-02] MEDS ORDERED: PHENERGAN PO PRN (09:00)
[2018-01-02] MEDS ORDERED: SODIUM CHLORIDE FLUSH SYRINGE 10 ML IV PRN (09:00)
[2018-01-02] MEDS ORDERED: PHENERGAN PR PRN (09:00)
[2018-01-02] MEDS ORDERED: ZOFRAN IV PRN (09:00)
[2018-01-02] MEDS ORDERED: NARCAN 0.4 MG/1 ML IV PRN ×2 (09:00→19:16)
[2018-01-02] MEDS ORDERED: BENADRYL IV PRN (09:00)
[2018-01-02 09:59] LABS: Total Cells Counted 100
[2018-01-02 10:00] LABS: Anisocytosis 2+; Hypochromasia 2+; Poikilocytosis 1+
[2018-01-02 10:01] LABS: Large Platelets Few; Ovalocytes Few; Platelet Estimate Cons; Tear Drop Cells Few
[2018-01-02] MEDS ORDERED: ANCEF/STERILE WATER 2 GM/20 ML 2 GM/20 ML SYRINGE IV NR (10:30)
[2018-01-02] MEDS ORDERED: WATER FOR IRRIG STERILE IR ONE (12:50)
[2018-01-02] MEDS ORDERED: NACL 0.9% IR ONE (12:50)
[2018-01-02] MEDS ORDERED: CLEOCIN 900 MG/50 mL 900 MG/50 ML BAG IV ONE (12:57)
[2018-01-02] MEDS ORDERED: GARAMYCIN/NS 80 MG/100 ML 100 ML IV ONE (12:59)
[2018-01-02] MEDS ORDERED: GARAMYCIN/NS 100 MG/100 ML 100 MG/100 ML BAG IV ONE (12:59)
[2018-01-02] MEDS ORDERED: NEO SYNEPHRINE/NS Syringe(OR USE) IV ONE (13:32)
[2018-01-02] MEDS ORDERED: ZOFRAN ONE (13:33)
[2018-01-02] MEDS ORDERED: MORPHINE ONE (13:47)
--- NOTE | 2018-01-02 13:57 | Operative Report ---
Operative Report Operative Report: Date of procedure: 01/02/2018 Pre-operative diagnosis: 1. Intrauterine at 38-6/7 weeks in labor 2. Previous 3. Desires permanent sterilization Post-operative diagnosis: Same Procedure name(s): 1. Repeat low transverse section 2. Bilateral tubal ligation Surgeon: Tray Grimaldo MD Occupational Therapy Aides Teacher: None Anesthesia: Spinal anesthesia by Dr. Liu EBL: 500 mls Findings: A 3373 g male Apgars 8 at 1 minute 8 at 5 minutes. Clear amniotic fluid. Normal uterus. Normal tubes and ovaries bilaterally. Procedure: After the patient was prepped and draped in usual sterile fashion, and after satisfactory level of epidural anesthesia was obtained, the skin knife was used to make a transverse skin incision through the previous skin scar. The incision was excised down to layer of the fascia, which was nicked in the midline and extended laterally using the Bovie cautery. The rectus muscles were dissected off the rectus fascia both superiorly and inferiorly. The rectus bellies were in the midline, and the peritoneum was entered under direct visualization. The peritoneal incision was extended superiorly and inferiorly. A bladder flap was created and the bladder blade was then placed. The uterus was scored in a curvilinear linear fashion, entered in the midline revealing clear amniotic fluid. The infant's head was delivered onto the surgical field, and the oropharynx and nasopharynx were bulb suctioned. The rest of the 's body was delivered, cord was doubly clamped and cut and the was handed to the waiting respiratory team. The placenta was manually removed from the uterus, and the uterus removed from its normal anatomical position. After gentle uterine lavage, the incision was inspected and found to be without extensions. It was then closed in 2 layers using 0 Vicryl suture in a running interlocking fashion, the second layer imbricating the first. After good hemostasis was achieved, copious amounts or irrigation was performed, and the gutters were suctioned free of blood and blood clots. Attention was then turned to the tubal ligation. First the right fallopian tube was grasped using [place], and the Filshie clip was applied to the proximal portion of the tube. The same procedure was performed on the left fallopian tube. The left tube was grasped using [place], and a [place] clip was applied to the proximal portion of the tube. The Tisseel sealant was sprayed across the uterine incision. The uterus was then returned to its normal anatomical position, and after excellent hemostasis assured, the peritoneum was re-approximated using 3-0 Vicryl suture in a running interlocking fashion, and then the rectus muscles were re-approximated using 3- 0 Vicryl suture in a [id number] configuration. The fascia was then re- approximated using 0 Vicryl suture in running interlocking fashion. The subcutaneous layer was made hemostatic using Bovie cautery, and re-approximated using 3-0 Vicryl suture in a running interlocking fashion the Tisseel sealant was sprayed across the fascial incision and the skin edges re-approximated using 4-0 Vicryl suture in a sub-cuticular fashion. Patient tolerated the procedure well was transported to recovery in stable condition.
[2018-01-02] MEDS ORDERED: NACL 0.9% 1000 ML 1,000 ML ONE (13:59)
[2018-01-02] MEDS: TORADOL IV PRN ×2 (14:52→20:43)
[2018-01-02] MEDS ORDERED: TUCKS PAD TP PRN (19:16)
[2018-01-02] MEDS ORDERED: PERCOCET 5/325 PO PRN (19:16)
[2018-01-02] MEDS ORDERED: TYLENOL PO PRN (19:16)
[2018-01-02] MEDS ORDERED: MOTRIN PO PRN (19:16)
[2018-01-02] MEDS ORDERED: MYLICON PO PRN (19:16)
[2018-01-02] MEDS ORDERED: LANSINOH TP PRN (19:16)
[2018-01-02] MEDS ORDERED: MILK OF MAGNESIA PO PRN (19:16)
[2018-01-02] MEDS ORDERED: D5LR 1,000 ML IV SCH (20:00)
[2018-01-02] MEDS ORDERED: SODIUM CHLORIDE FLUSH SYRINGE 10 ML IV NR (20:00)
[2018-01-02] MEDS: CLEOCIN 600 MG/50 mL 600 MG/50 ML BAG IV SCH (22:00)
[2018-01-02] MEDS ORDERED: BENADRYL PO PRN (22:01)
[2018-01-02] MEDS: NORCO 5/325 PO PRN (22:09)
[2018-01-03] MEDS: CLEOCIN 600 MG/50 mL 600 MG/50 ML BAG IV SCH (05:15)
[2018-01-03] MEDS: NORCO 5/325 PO PRN ×2 (08:00→16:53)
[2018-01-03 08:15] LABS: Hematocrit 32.2 % (30.3-42.9)
--- NOTE | 2018-01-03 08:28 | Progress Note ---
Assessment and Plan - Patient Problems (1) 38 weeks gestation of Onset Date: 01/02/18 Current Visit: Yes Status: Resolved (2) Previous section Onset Date: 01/02/18 Current Visit: Yes Status: Resolved (3) Status post Onset Date: 01/03/18 Current Visit: Yes Status: Resolved Plan to address problem: A: S/P Repeat C Section with BTL - POD #1 Doing well Asymptomatic anemia - stable Positional headache - ? spinal leak P: Continue RPOC Obtain anesthesia consultation Subjective - Subjective Date of service: 01/03/18 Principal diagnosis: s/p Repeat C Section with BTL - POD #1 Interval history: Pt is feeling well, but complains of frontal headache worse when she lays down. Bleeding improved. Patient reports: appetite normal, voiding normally, pain well controlled, ambulating normally, no dizzy ambulation, no flatus, no nauseated [place]: doing well, bottle feeding Objective - Vital Signs Latest vital signs: Vital Signs Temp Pulse Resp BP BP Pulse Ox 01/03/18 05:40 98.7 F 71 18 96/59 01/03/18 00:27 97.7 F 60 18 104/61 01/02/18 22:09 18 01/02/18 20:46 98.4 F 68 18 109/72 01/02/18 20:43 18 01/02/18 15:13 78 17 11/67 100 01/02/18 14:58 75 16 102/62 100 01/02/18 14:43 60 14 99/58 100 01/02/18 14:28 68 14 101/57 100 01/02/18 14:13 68 14 105/61 100 01/02/18 14:08 74 16 110/56 99 01/02/18 14:03 96.8 F L 85 16 110/86 100 01/02/18 11:55 93 H 98 01/02/18 11:50 96 H 98 01/02/18 11:45 90 99 01/02/18 11:40 89 97 01/02/18 11:32 91 H 116/71 01/02/18 10:30 98.9 F 90 20 116/71 99 Intake and Output 01/02/18 01/03/18 01/03/18 22:59 06:59 14:59 Intake Total 250 400 Output Total 1300 1600 Balance -1050 -1200 Intake: IV 250 CLEOCIN 600 MG/50 mL 600 50 mg In 50 ml @ 100 mls/hr IV Q8H [facility] Rx#:[id number] Oral 400 Output: Urine 1300 1600 Indwelling Catheter 650 400 Uretheral ([place]) 300 300 Void 900 Other: Total, Intake Amount 200 Total, Output Amount 650 900 - Exam Breasts: Present: deferred Cardiovascular: Present: Regular rate Lungs: Present: Clear to auscultation Abdomen: Present: normal appearance, soft Uterus: Present: normal, firm, fundal height below umbilicus Extremities: Present: normal Incision: Present: normal, dry, intact, dressed - Labs Labs: Abnormal lab results 01/02/18 01/03/18 Range/Units 07:42 07:43 Hgb 10.0 L (10.1-14.3) gm/dl Seg Neuts % (Manual) 73.0 H (40.0-70.0) % Laboratory Tests 01/02/18 01/02/18 01/02/18 07:42 07:42 07:42 WBC 6.4 RBC 4.66 Hgb 10.1 Hct 31.1 MCV 67 L MCH 22 L MCHC 32 RDW 28.6 H Plt Count 236 Add Manual Diff Complete Total Counted 100 Seg Neuts % (Manual) 73.0 H Band Neutrophils % 0 Lymphocytes % (Manual) 19.0 Reactive Lymphs % (Man) 0 Monocytes % (Manual) 6.0 Eosinophils % (Manual) 1.0 Basophils % (Manual) 1.0 Metamyelocytes % 0 Myelocytes % 0 Promyelocytes % 0 Blast Cells % 0 Nucleated RBC % Not Reportable Seg Neutrophils # Man 4.7 Band Neutrophils # 0.0 Lymphocytes # (Manual) 1.2 Abs React Lymphs (Man) 0.0 Monocytes # (Manual) 0.4 Eosinophils # (Manual) 0.1 Basophils # (Manual) 0.1 Metamyelocytes # 0.0 Myelocytes # 0.0 Promyelocytes # 0.0 Blast Cells # 0.0 WBC Morphology Not Reportable Hypersegmented Neuts Not Reportable Hyposegmented Neuts Not Reportable Hypogranular Neuts Not Reportable Smudge Cells Not Reportable Toxic Granulation Not Reportable Toxic Vacuolation Not Reportable Dohle Bodies Not Reportable Pelger-Huet Anomaly Not Reportable Luis Rods Not Reportable Platelet Estimate Cons Clumped Platelets Not Reportable Plt Clumps, EDTA Not Reportable Large Platelets Few Giant Platelets Not Reportable Platelet Satelliting Not Reportable Plt Morphology Comment Not Reportable RBC Morphology Not Reportable Dimorphic RBCs Not Reportable Polychromasia Not Reportable Hypochromasia 2+ Poikilocytosis 1+ Anisocytosis 2+ Microcytosis 1+ Macrocytosis Not Reportable Spherocytes Not Reportable Pappenheimer Bodies Not Reportable Sickle Cells Not Reportable Target Cells Not Reportable Tear Drop Cells Few Ovalocytes Few Helmet Cells Not Reportable Pimentel-[place] Bodies Not Reportable [place] Rings Not Reportable [place] Cells Not Reportable Bite Cells Not Reportable Crenated Cell Not Reportable Elliptocytes Not Reportable Acanthocytes (Spur) Not Reportable Rouleaux Not Reportable Hemoglobin C Crystals Not Reportable Schistocytes Not Reportable Malaria parasites Not Reportable [place] Bodies Not Reportable Hem Pathologist Commnt No RPR Nonreactive Hep Bs Antigen Blood Type A POSITIVE Antibody Screen Negative 01/02/18 01/03/18 19:39 07:43 WBC RBC Hgb 10.0 L Hct 32.2 MCV MCH MCHC RDW Plt Count Add Manual Diff Total Counted Seg Neuts % (Manual) Band Neutrophils % Lymphocytes % (Manual) Reactive Lymphs % (Man) Monocytes % (Manual) Eosinophils % (Manual) Basophils % (Manual) Metamyelocytes % Myelocytes % Promyelocytes % Blast Cells % Nucleated RBC % Seg Neutrophils # Man Band Neutrophils # Lymphocytes # (Manual) Abs React Lymphs (Man) Monocytes # (Manual) Eosinophils # (Manual) Basophils # (Manual) Metamyelocytes # Myelocytes # Promyelocytes # Blast Cells # WBC Morphology Hypersegmented Neuts Hyposegmented Neuts Hypogranular Neuts Smudge Cells Toxic Granulation Toxic Vacuolation Dohle Bodies Pelger-Huet Anomaly Luis Rods Platelet Estimate Clumped Platelets Plt Clumps, EDTA Large Platelets Giant Platelets Platelet Satelliting Plt Morphology Comment RBC Morphology Dimorphic RBCs Polychromasia Hypochromasia Poikilocytosis Anisocytosis Microcytosis Macrocytosis Spherocytes Pappenheimer Bodies Sickle Cells Target Cells Tear Drop Cells Ovalocytes Helmet Cells Pimentel-Great Notch Bodies [place] Rings [place] Cells Bite Cells Crenated Cell Elliptocytes Acanthocytes (Spur) Rouleaux Hemoglobin C Crystals Schistocytes Malaria parasites Brandon Bodies Hem Pathologist Commnt RPR Hep Bs Antigen Non-reactive Blood Type Antibody Screen
[2018-01-03] MEDS ORDERED: PRENATAL VITAMIN PO SCH (10:00)
[2018-01-03] MEDS ORDERED: FEOSOL PO SCH (10:00)
[2018-01-03] MEDS ORDERED: NACL 0.9% 1000 ML 1,000 ML IV SCH (15:00)
--- NOTE | 2018-01-03 17:27 | History and Physical Report ---
Time: Right now is 2:00 p.m. SUBJECTIVE: The patient is status post vaginal delivery. The patient had a lumbar epidural injection done for her vaginal delivery on 01/02/2018. The patient started complaining of spinal headache this morning. The patient claimed that the pain would increase whenever she would sit up or stand up and would decrease whenever she would lie flat. On examining the patient today, there is pain in the frontal area and also she complains of neck pain on standing the patient up. The patient does have a post-spinal headache and so we decided to do a lumbar epidural blood patch on her. PROCEDURE: After informed consent was signed, the patient was made to sit up and the lumbar area was prepped and draped with Betadine solution. Two mL of 1% lidocaine was then infiltrated around the L3-L4 interspace and an #18-gauge needle was used to identify the epidural space with the loss of resistance technique. Once the tip of the epidural space was identified, 20 mL of patient's blood taken out from her left cubital vein was injected in the epidural space under sterile technique. The patient tolerated the procedure well. Vital signs stable. After the procedure, she was made to lie flat on her bed. I have instructed the patient to drink a lot of fluids. We have also started an IV on the patient. We are going to give her a 1000 mL of fluids intravenously in the next 5-6 hours. I have instructed the patient for bed rest, take some nonsteroidal anti-inflammatory medications and not to lift anything heavy. JOB# [id number] MANJU/COSTA
[2018-01-03] MEDS ORDERED: M-M-R II VACCINE SUB-Q ONE (19:18)
[2018-01-03] MEDS ORDERED: BOOSTRIX IM ONE (19:18)
--- NOTE | 2018-01-04 10:50 | Progress Note ---
Assessment and Plan - Patient Problems (1) 38 weeks gestation of Onset Date: 01/02/18 Current Visit: Yes Status: Resolved (2) Previous section Onset Date: 01/02/18 Current Visit: Yes Status: Resolved (3) Status post Onset Date: 01/03/18 Current Visit: Yes Status: Resolved Plan to address problem: A: S/P Repeat C Section with BTL - POD #2 Doing well Asymptomatic anemia - stable P: May go home today Subjective - Subjective Date of service: 01/04/18 Principal diagnosis: s/p Repeat C Section with BTL - POD #2 Interval history: Pt is feeling well, without complaints. She is tolerating a reg diet without nausea or vomiting, ambulating and voiding without difficulty. Patient reports: appetite normal, voiding normally, pain well controlled, flatus , ambulating normally, no dizzy ambulation, no nauseated [place]: doing well, bottle feeding Objective - Vital Signs Latest vital signs: Vital Signs Temp Pulse Resp BP BP Pulse Ox 01/04/18 01:29 98.1 F 62 20 116/69 98 01/03/18 16:01 98.7 F 82 20 123/79 100 01/03/18 14:55 69 18 126/78 100 01/03/18 14:50 77 18 120/69 99 01/03/18 14:45 77 18 120/68 100 01/03/18 14:40 73 18 122/69 100 01/03/18 14:35 73 18 120/75 100 01/03/18 14:30 70 18 120/72 100 01/03/18 14:25 72 18 120/80 100 Intake and Output 01/03/18 01/04/18 01/04/18 22:59 06:59 14:59 Intake Total 240 360 Balance 240 360 Intake: Oral 240 360 Other: Total, Intake Amount 240 120 # Voids Void 1 1 - Exam Breasts: Present: deferred Cardiovascular: Present: Regular rate Lungs: Present: Clear to auscultation Abdomen: Present: normal appearance, soft Uterus: Present: normal, firm, fundal height below umbilicus Extremities: Present: normal Incision: Present: normal, dry, intact
--- NOTE | 2018-01-04 10:52 | Discharge Summary ---
Providers - Providers Date of Admission: 01/02/18 06:39 Date of discharge: 01/04/18 Attending physician: DEENA GARCIA Primary care physician: DEENA GARCIA Hospitalization Reason for admission: active labor, section, IUP at term Delivery: Procedure: section, bilateral tubal ligation, repeat low transverse Episiotomy: none Incision: normal, dry, intact Other procedures: tubal ligation complications: spinal headache Discharge diagnosis: IUP at term delivered [place] baby: male Hospital course: Pt is a 27yo BF EDC 01/10/18; EGA 39 6/7 weeks who presented to L&D complaining of RUC's. She was scheduled for a Repeat C Section with BTL. She received care at [facility] since 14 weeks and course has been unremarkable. She underwent an uncomplicated Repeat C Section with BTL and post operative course was complicated by a spinal headache which resolved with a spinal blood patch by Dr Stack on POD #1. By POD #2 she was tolerating a reg diet without nausea or vomiting, ambulating and voiding without difficulty. She was therefore discharged to home on POD #2 in stable condition. Condition at discharge: Good Disposition: DC-01 TO HOME OR SELFCARE - Discharge Diagnoses (1) 38 weeks gestation of Status: Resolved (2) Previous section Status: Resolved (3) Status post Status: Resolved Plan - Discharge Medications Prescriptions: Ferrous Sulfate [Feosol 325 MG tab] 325 mg PO BID #60 tablet HYDROcodone/ACETAMINOPHEN [[place] 5-325 Tablet] 1 each PO Q6HR #30 tablet Ibuprofen [Motrin] 800 mg PO Q8HR PRN #30 tablet PRN Reason: Moder Pain Unrelieved By [place] Vit Calc,Iron,Folic [ Vitamins] 1 each PO DAILY #30 tablet - Provider Discharge Summary Activity: routine, no sex for 6 weeks, no heavy lifting 4 weeks, no strenuous exercise Diet: routine Instructions: routine Additional instructions: [] Smoking cessation referral if applicable(refer to patient education folder for contact #) [] Refer to [facility] Booklet Call your doctor immediately for: * Fever > 100.5 * Heavy vaginal bleeding ( >1 pad per hour) * Severe persistent headache * Shortness of breath * Reddened, hot, painful area to leg or breast * Drainage or odor from incision. * Keep incision clean and dry at all times and follow doctor's instructions regarding bathing/showering - Follow up plan Follow up: DEENA GARCIA MD [Primary Care Provider] - 14 Days
[2018-01-04 16:02] VITALS: BP 121/77
== END 2018-01-04 15:45 | disposition home or self-care (01) | DRG 766 ==
LOC: APU 06:39 → OB 16:02
PROVIDERS: ADMIT Obstetrics & Gynecology; ATTEND Obstetrics & Gynecology
PROC: 0UL70CZ Occlusion of Bilateral Fallopian Tubes with Extraluminal Device, Open Approach (ICD-10-PCS; principal; 2018-01-02)
PROC: 10D00Z1 Extraction of Products of Conception, Low, Open Approach (ICD-10-PCS; 2018-01-02)
PROC: 3E0R3GC Introduction of Other Therapeutic Substance into Spinal Canal, Percutaneous Approach (ICD-10-PCS; 2018-01-02)
DX: O34.211 Maternal care for low transverse scar from previous cesarean delivery (principal); O99.344 Other mental disorders complicating childbirth; F41.9 Anxiety disorder, unspecified; O99.02 Anemia complicating childbirth; D57.3 Sickle-cell trait; Z3A.39 39 weeks gestation of pregnancy; O89.4 Spinal and epidural anesthesia-induced headache during the puerperium; Z37.0 Single live birth; Z30.2 Encounter for sterilization
CPT/HCPCS: 36415; 59025; 85007; 85014; 85018; 85025; 86592; 86706; 86850; 86900; 86901; 96360; 96361; C9250; J0690; J1170; J1580; J1885; J2270; J2370; J2405; J2590; J2765; J7030; J7120; J7121

== ENCOUNTER 2018-01-08 08:50 | Day surgery (SDC) | payer MEDICAID ==
[2018-01-08] MEDS ORDERED: NACL 0.9% 1000 ML 1,000 ML IV ONE (10:56)
--- NOTE | 2018-01-08 12:02 | Progress Note ---
Subjective Date of service: 01/08/18 Principal diagnosis: postdural puncture headache Interval history: Pt. had signs and symtoms suggestive of postdural puncture headache post labor epidural. Pt. received a blood patch while she was still an inpatient. Symptoms subsided. Started to reoccur a few days later with 10/10 pain. Patient placed in sitting position. Epidural blood patch attained using sterile technique and aseptic precautions with 20ml patient's blood drawn using sterile technique. No complications. Objective - Constitutional Vitals: Vital Signs - 12hr 01/08/18 01/08/18 09:26 10:54 Temperature 97.1 F L Pulse Rate 72 69 Respiratory 18 18 Rate Blood Pressure 104/70 126/71
[2018-01-08 12:33] VITALS: BP 136/79
== END 2018-01-08 12:10 | disposition home or self-care (01) ==
LOC: OR 08:50
PROVIDERS: ATTEND Anesthesiology
DX: G97.1 Other reaction to spinal and lumbar puncture (principal); D57.3 Sickle-cell trait; Z88.1 Allergy status to other antibiotic agents
CPT/HCPCS: 62273; J7030